=== PATIENT | female | born 1960 | race Caucasian/White ===

== ENCOUNTER → 2022-10-06 15:51 | Outpatient (CLI) | payer OTHER, SELFPAY ==
--- NOTE | 2022-10-06 | DI.US.S_ITS ---
PROCEDURE: US PELVIC COMPLETE INDICATIONS: RT ABDOMINAL PAIN; TECHNIQUE: Real-time scanning was performed of the pelvic organs, with image documentation. Additional endovaginal scanning was necessary due to incomplete visualization of the adnexal and endometrial structures by transabdominal scanning. COMPARISON: None. FINDINGS: Uterus: The uterus is surgically absent. No abnormality is seen in vaginal cuff region. Ovaries: Bilateral ovaries are not visualized due to overlying bowel gas. No gross adnexal mass is seen. Other: No pathologic free abdominal or pelvic fluid. IMPRESSION: 1. Prior hysterectomy. No abnormality is seen in vaginal cuff region. 2. Bilateral ovaries are not visualized. No gross adnexal mass. No pelvic free fluid. We strive to produce accurate, complete, and clear reports of imaging services. To assist us in improving patient care, this report was composed using standard report templates and voice recognition software. Therefore, it may contain abnormal punctuation, insertions and/or omissions. Occasional wrong-word or sound-alike substitutions may occur. Though we review the report and make efforts to correct it, we do recommend that the report be read carefully in proper context to recognize any text inaccuracies. Dictated by: Fracisco Lozano M.D. on 10/06/2022 at 16:51 Approved by: Fracisco Lozano M.D. on 10/06/2022 at 16:51
--- NOTE | 2022-10-06 | DI.US.S_ITS ---
PROCEDURE: US ABDOMEN LIMITED INDICATIONS: RT ABDOMINAL PAIN; TECHNIQUE: Real-time scanning was performed of the abdominal and retroperitoneal organs, with image documentation. COMPARISON: None. FINDINGS: Liver: Liver is normal in size and homogeneous in echotexture. Gallbladder: Gallbladder is within normal limits. Biliary ducts: Intrahepatic bile ducts are non-dilated. Extrahepatic bile duct caliber measures 3.8 mm. Normal is 6-7 mm or less in diameter, or 10 mm or less post-cholecystectomy. Pancreas: Visualized portions of the pancreas are sonographically normal. IMPRESSION: Unremarkable ultrasound examination of right upper quadrant abdomen. Dictated by: Fracisco Lozano M.D. on 10/06/2022 at 16:50 Approved by: Fracisco Lozano M.D. on 10/06/2022 at 16:50
== END ==
PROVIDERS: PCP Nurse Practitioner; Referring Provider Nurse Practitioner; Visit Provider Nurse Practitioner
DX: R10.9 Unspecified abdominal pain (principal); Z90.710 Acquired absence of both cervix and uterus
CPT/HCPCS: 76705; 76830; 76856